=== PATIENT | male | born 1940 | race Caucasian/White ===

== ENCOUNTER 2018-01-25 05:55 | Day surgery (SDC) | payer MEDICARE ==
[2018-01-24 12:46] LABS: HEMATOCRIT 46.5 % (42.0-54.0); HEMOGLOBIN 15.9 g/dL (13.5-17.5); MCH 32.4 pg (26.0-34.0); MCHC 34.2 g/dL (31.0-37.0); MCV 94.9 fL (80.0-100.0); MEAN PLATELET VOLUME 10.7 fL (7.4-10.4); RBC 4.9 10x6/uL (4.20-6.10); RDW 13.1 % (11.5-14.5); WBC 8.3 10x3/uL (4.8-10.8)
[~2018-01-25] VITALS: Ht 180.3 cm; Wt 95.3 kg
--- NOTE | ~2018-01-25 | OP ---
PATIENT NAME: ADRIANNA PATRICK MEDICAL RECORD: [id number] LOCATION:[facility] ADMISSION DATE: SURGEON: LELAND FRIAS DPM DATE OF OPERATION: 01/25/2018 PREOPERATIVE DIAGNOSIS: Enlargement of medial aspect of the right talus. POSTOPERATIVE DIAGNOSIS: Enlargement of medial aspect of the right talus. PROCEDURE: Excision of a large bone right medial talar head. ANESTHESIA: General with local infiltrate utilizing lidocaine and Marcaine plain, approximately 8 cc total around the surgical site. HEMOSTASIS: Right ankle tourniquet at 250 mmHg. PREOPERATIVE DETAILS: The patient was taken to the OR, placed on the operating table in a supine position, followed by induction of general anesthesia and infiltration of local anesthetic. The right extremity was then prepped and draped in usual aseptic technique, followed by exsanguination and inflation of tourniquet. A 15 blade was used to create a 4-cm linear incision over the medial aspect of the right foot overlying the bony prominence. The incision was deepened down through subcutaneous tissue. The posterior tibial tendon was visualized and split longitudinally giving access to the medial talar head. There was noted to be significant enlargement. An osteotome and mallet were then used to resect the enlargement. Bone rasp was used to smooth it. Wound was flushed. The tendon was repaired with 2-0 Vicryl, the subcutaneous tissue with 4-0 Rapide, and the skin was closed with 4-0 Rapide in a subcuticular technique, followed by Dermabond. Adaptic, 4 x 4, and Conform were used to dress the wound, followed by Coban. Tourniquet was deflated. POSTOPERATIVE DETAILS: The patient tolerated the procedure well and left the OR with vital signs stable and vascular status at preoperative levels. The patient was transported to recovery per anesthesia in stable condition. TRANSINT:[id number] Voice Confirmation ID: [id number] DOCUMENT ID: [id number] LELAND FRIAS DPM at 0838 CC: [id number] DICTATION DATE: 01/25/18 1019 MEDIA ACCOUNT EXECUTIVE: 01/25/18 1134 [facility] 01/25/18 [place] [id number]
[~2018-01-25 05:55] MED LIST: ASPIRIN EC81 M1 PO; OMEPRAZOLE20 M1 PO; TOPROL XL100 MG PO; TRIAMTERENE/HCTZ; ZESTRIL40 MG PO
[2018-01-25 06:20] VITALS: BP 131/76; Ht 180.3 cm; Wt 95.3 kg
[2018-01-25] MEDS ORDERED: FISH OIL 1,0001 CA1 PO (06:36)
[2018-01-25] MEDS ORDERED: MULTI-DAY VITAM1 TAB PO (06:36)
== END 2018-01-25 11:53 | disposition home or self-care (01) ==
LOC: D.OPS 05:55 → D.PAN 08:45 → D.OPS 11:00
PROVIDERS: Anesthesiology
DX: M89.371 Hypertrophy of bone, right ankle and foot (principal); Z01.812 Encounter for preprocedural laboratory examination